=== PATIENT | male | born 1945 | race Caucasian/White ===

== ENCOUNTER 2020-06-23 08:38 | Outpatient (CLI) | payer MEDICARE ==
[2020-06-23] MEDS ORDERED: ASPI81TA45 PO (09:04)
[2020-06-23] MEDS ORDERED: ROSU10TA2 PO (09:04)
[2020-06-23] MEDS ORDERED: HYDROCHLOROTH12.5 MG PO (09:04)
[2020-06-23] MEDS ORDERED: ENAL20TA9 PO (09:04)
[2020-06-23] MEDS ORDERED: CARV12.52 PO (09:04)
[2020-06-23] MEDS ORDERED: INSU100I34 SC (09:12)
[2020-06-23 10:03] LABS: ALBUMIN 3.8 g/dL (3.4-5.0); ANION GAP 5 mmol/L (5-15); CALCIUM 9.1 mg/dL (8.5-10.1); CHLORIDE 105 mmol/L (98-107)
[2020-06-23 10:07] LABS: ALANINE AMINOTRANSFERASE 34 U/L (12-78); ALKALINE PHOSPHATASE 31 U/L (45-117); BILIRUBIN,TOTAL 0.7 mg/dL (0.2-1.0); CREATININE 1.22 mg/dL (0.7-1.3); TOTAL PROTEIN 7.5 g/dL (6.4-8.2)
== END 2020-06-23 23:59 | disposition home or self-care (01) ==
LOC: EDBD → STAR 08:38 → EDBD 08:38 → STAR 23:59
PROVIDERS: ATTEND Orthopaedic Surgery
DX: Z01.818 Encounter for other preprocedural examination (principal); G56.01 Carpal tunnel syndrome, right upper limb; M72.0 Palmar fascial fibromatosis [Dupuytren]; I45.19 Other right bundle-branch block; I25.2 Old myocardial infarction; Z20.828 Contact with and (suspected) exposure to other viral communicable diseases
CPT/HCPCS: 36415; 80053; 93005; U0003

== ENCOUNTER 2020-06-25 07:32 | Day surgery (SDC) | payer MEDICARE ==
[~2020-06-25] VITALS: Ht 174 cm; Wt 88.4 kg
[~2020-06-25 07:32] MED LIST: ASPI81TA45 PO; CARV12.52 PO; ENAL20TA9 PO; HYDROCHLOROTH12.5 MG PO; INSU100I34 SC; ROSU10TA2 PO
[2020-06-25] MEDS ORDERED: CHLORHEXIDINE 15 ML UDC ONE (07:48)
[2020-06-25 08:06] VITALS: BP 172/93
[2020-06-25] MEDS ORDERED: LACTATED RINGERS 1,000 ML IV SCH (08:30)
[2020-06-25] MEDS ORDERED: ONDANSETRON 2MG/ML, 2ML IVPush PRN (08:30)
[2020-06-25] MEDS ORDERED: LABETALOL 5MG/ML, 20ML IV PRN (08:30)
[2020-06-25] MEDS ORDERED: FENTANYL PF 100 MCG/2ML IV PRN (08:30)
[2020-06-25] MEDS ORDERED: PROMETHAZINE 25 MG/ML, 1ML IVPush PRN (08:30)
[2020-06-25] MEDS ORDERED: EPHEDRINE 50 MG/ML, 1ML IVPush PRN (08:30)
[2020-06-25] MEDS ORDERED: LORazepam 2 MG/ML, 1ML IVPush PRN (08:30)
[2020-06-25] MEDS ORDERED: hydrALAzine 20 MG/ML, 1ML IV PRN (08:30)
[2020-06-25] MEDS ORDERED: ACETAMINOPHEN 325 MG TABLET PO PRN (08:30)
[2020-06-25] MEDS ORDERED: HYDROmorphone 1 MG/ML, 1ML INJ IVPush PRN (08:30)
[2020-06-25] MEDS ORDERED: CHLORHEXIDINE 15 ML UDC MM ONE (08:30)
[2020-06-25] MEDS ORDERED: OXYcodone 5 MG/5 ML ORAL.SOL UDC PO PRN (08:30)
[2020-06-25] MEDS ORDERED: METHOCARBAMOL 1,000 MG in DEXTROSE 5% 100 ML IV PRN (08:30)
[2020-06-25] MEDS ORDERED: FENTANYL PF 250 MCG/5ML ONE (08:55)
[2020-06-25] MEDS ORDERED: BUPIVACAINE/PF 0.5% ONE (09:03)
[2020-06-25] MEDS ORDERED: EPINEPHRINE 1 MG/ML, 1ML ONE (09:03)
[2020-06-25] MEDS ORDERED: TRIAMCINOLONE ACETONIDE 40 MG/ML, 1ML ONE (09:43)
[2020-06-25] MEDS ORDERED: DEXAMETHASONE 4 MG/ML, 5ML ONE (09:45)
[2020-06-25] MEDS ORDERED: CEFAZOLIN 1,000 MG ONE (11:22)
[2020-06-25] MEDS ORDERED: ESMOLOL 100 MG/10 ML ONE (11:22)
[2020-06-25] MEDS ORDERED: PROPOFOL 10 MG/ML, 20ML ONE (11:22)
[2020-06-25] MEDS ORDERED: hydrALAzine 20 MG/ML, 1ML ONE (11:26)
== END 2020-06-25 12:50 | disposition home or self-care (01) ==
LOC: EDBD → OUT 07:32
PROVIDERS: ATTEND Orthopaedic Surgery
DX: G56.01 Carpal tunnel syndrome, right upper limb (principal); M72.0 Palmar fascial fibromatosis [Dupuytren]; M65.312 Trigger thumb, left thumb; I25.10 Atherosclerotic heart disease of native coronary artery without angina pectoris; I10 Essential (primary) hypertension; E11.9 Type 2 diabetes mellitus without complications; Z79.82 Long term (current) use of aspirin; Z79.899 Other long term (current) drug therapy; Z87.891 Personal history of nicotine dependence; Z95.5 Presence of coronary angioplasty implant and graft
CPT/HCPCS: 20551; 26123; 64721; 82962; J0171; J0360; J0690; J1100; J2704; J3010; J7120; J3301

== ENCOUNTER 2020-06-26 01:40 | Emergency (ER) | payer MEDICARE ==
[~2020-06-26] VITALS: Ht 172.7 cm; Wt 75.0 kg
[2020-06-26] MEDS ORDERED: DIAZEPAM 5 MG TABLET ONE (01:59)
[2020-06-26] MEDS ORDERED: DIAZEPAM 5 MG TABLET PO ONE (02:00)
[2020-06-26] MEDS ORDERED: LIDODERM 5% PATCH TD ONE ×2 (02:30→02:43)
--- NOTE | 2020-06-26 02:47 | NUR ---
PT TO IMAGING AT THIS TIME.
--- NOTE | 2020-06-26 02:52 | NUR ---
LATE ENTRY SUMMARY NOTE: THIS PT HAD OUTPATIENT SX TODAY UNDER GENERAL ANESTHISIA. PT THEN THREW UP AT DINNER, AND GOT UP FROM THE TABLE SUDDENLY. HE STATES PAIN STARTED AFTER THIS. PT STATES THAT HIS PAIN IS WORST WHEN HE'S STANDING, HOWEVER PT IS ABLE TO STAND AND CMS OF RIGHT LEG IS INTACT.
--- NOTE | 2020-06-26 03:32 | NUR ---
PT QUESTIONING ABOUT WHEN HE WILL BE DISCHARGED. NADN. AT BEDSIDE.
[2020-06-26 03:47] VITALS: BP 134/64
--- NOTE | 2020-06-26 03:47 | NUR ---
PT AMBULATORY TO BATHROOM, STEADY GAIT.
== END 2020-06-26 04:05 | disposition home or self-care (01) ==
LOC: ED 02:29
DX: S39.012A Strain of muscle, fascia and tendon of lower back, initial encounter (principal); E11.9 Type 2 diabetes mellitus without complications; I10 Essential (primary) hypertension; Z87.891 Personal history of nicotine dependence; X58.XXXA Exposure to other specified factors, initial encounter; Y93.89 Activity, other specified; Y92.89 Other specified places as the place of occurrence of the external cause; Y99.8 Other external cause status
CPT/HCPCS: 72190; 99283